=== PATIENT | female | born 1985 | race African-American/Black ===

== ENCOUNTER 2019-08-04 10:52 | Inpatient (IN) | payer OTHER ==
[2019-08-04] MEDS ORDERED: OBEPIDURAL* 250 ML EPIDURAL ONE (12:07)
[2019-08-04 12:10] LABS: ABS Lymphocytes 0.9 10^3/ul (1.0-4.8); ABS Monocytes 0.4 10^3/ul (0-0.8); ABS Neutrophils 4.7 10^3/ul (1.5-7.7); Eosinophil % 0.2 %; Hematocrit 33 % (35-47); Hemoglobin 10.7 g/dL (12.0-16.0); Lymphocyte % 14.6 %; Mean Corpuscular HGB Conc 33 g/dL (31-36); Mean Corpuscular Hemoglobin 27 pg (27-31); Mean Corpuscular Volume 83 fL (80-97); Mean Platelet Volume 8.8 fL (7.4-10.4); Platelet Count 273 10^3/uL (150-450); Red Blood Count 3.93 10^6 /uL (3.70-4.87); Red Cell Distribution Width 15 % (10-15)
[2019-08-04] MEDS ORDERED: Lactated Ringers 1000 ML Bag* 1,000 ML IV ONE ×2 (12:18→13:08)
[2019-08-04] MEDS ORDERED: Buffered Lidocaine 1% SYRIN* 1 ML/SYRINGE INTRADERM ONE (12:18)
--- NOTE | 2019-08-04 12:27 | HP ---
General Information - Reason for Visit Pt presents to L&D reporting intense ctx every 2-3 min for the past couple hours. Pt has been getting part of her care in [place] as she was considered too high risk for a TOLAC with her BMI >60. Pt went into active labor today and could not make it there. Pt has been extensively counseled regarding the risks of TOLAC several times in her . - General Information Maternal Age: 30 Grav: 2 Para: 1 SAB: 0 IEA: 0 Estimated Due Date: 08/07/19 Determined By: LMP Gestational Age in Weeks/Days: 39+4 Maternal Blood Type and Rh: O Positive - Results this Serology/RPR Result: Non-Reactive Rubella Result: Immune HBsAg Result: Negative HIV Result: Negative GBS Culture Result: Negative Past Medical History Delivery History: Hx C/Section Pertinent Past Medical History: See Records Past Medical History Comment: Morbid obesity, asthma, depression, anxiety, back pain Pertinent Past Surgical History: See Records Past Surgical History Comment: Mensicectomy, - Antepartal Records Antepartal Records: Reviewed, Complicated by: - see above Review of Systems Constitutional: Uncomfortable CV Complaint: No Respiratory: Shortness of Breath: No Gastrointestinal: No Nausea/Vomiting, Normal Bowel Movement Genitourinary: No Leaking Fluid Musculoskeletal: Contractions Neurological: No Headache Movement: Normal Exam Allergies/Adverse Reactions: Allergies MS Fluticasone [From Advair] Allergy (Verified 04/28/18 11:22) Anaphylatic Shock MS Salmeterol [From Advair] Allergy (Verified 04/28/18 11:22) Anaphylatic Shock succinylcholine Allergy (Verified 04/28/18 11:22) MYALGIA T 97.0, P72, 129/72 Lab Values - Entire Visit: Laboratory Tests 08/04/19 08/04/19 12:00 12:00 WBC 6.0 RBC 3.93 Hgb 10.7 L Hct 33 L MCV 83 MCH 27 MCHC 33 RDW 15 Plt Count 273 MPV 8.8 Neut % (Auto) 78.4 Lymph % (Auto) 14.6 [place] % (Auto) 6.5 Eos % (Auto) 0.2 Baso % (Auto) 0.3 Absolute Neuts (auto) 4.7 Absolute Lymphs (auto) 0.9 L Absolute Monos (auto) 0.4 Absolute Eos (auto) 0.0 Absolute Basos (auto) 0.0 Absolute Nucleated RBC 0.0 Nucleated RBC % 0.0 Blood Type O Positive - Measurements Height: 5 ft Weight: 309 lb Body Mass Index (BMI): 60.3 Pre- Weight: 327 lb - Exam Breast: Breast Exam Deferred Heart: Normal Rhythm/Heart Sounds HEENT: No Significant Findings Lungs: Clear Bilaterally Rectal: Rectal Exam Deferred - Ultrasound/Biophysical Profile Ultrasound Status: Not Done Targeted Exam Findings Estimated Weight: 7lb 12oz Cervical Exam: 8cm Effacement: Complete Station: -1 Presenting Part: Vertex Membrane Status: Bulging EFM Findings - External Monitor Findings Baseline Heart Rate: 140 External Monitor Findings: Accelerations Present, No Pattern of Variable or Late Decelerations, Variability Moderate, Baseline Stable Contractions: Regular, Strong Contraction Frequency: Q2-3 Assessment/Plan - Assessment Pt with very high BMI, h/o C/S strongly desires TOLAC. Aware we did not recommend delivery here due to the high risk nature of her situation, but she still wants to continue. Epidural requested luis. IV able to be placed already. Labs drawn. - Obstetrical Risk Factors Obstetrical Risk Factors: Obesity, Previous C/Section in Labor - Plan Plan: Admit - Anticipate Vaginal Delivery - Date/Time of Admission Date of Admission: 08/04/19 Time of Admission: 12:00
[2019-08-04] MEDS ORDERED: Lactated Ringers 1000 ML Bag* 1,000 ML IV SCH ×3 (13:00→20:00)
[2019-08-04] MEDS ORDERED: Famotidine TAB* 20 MG PO PRN (13:08)
[2019-08-04] MEDS ORDERED: Phenylephrine 40 MCG/ML SYRINGE IV PUSH PRN (13:08)
[2019-08-04] MEDS ORDERED: Sodium Citrate/Citric Acid* 15 ML UDC PO PRN (13:08)
[2019-08-04] MEDS ORDERED: EPHEDrine (Pressors)* 50 MG/ML VIAL IV PUSH PRN (13:08)
[2019-08-04] MEDS ORDERED: Lactated Ringers 1000 ML Bag* 500 ML IV PRN ×2 (13:08)
[2019-08-04] MEDS ORDERED: OBEPIDURAL* 250 ML EPIDURAL SCH (14:00)
[2019-08-04 14:39] LABS: Urine Benzodiazepine Screen None Detected (None Detect); Urine Opiates Screen None Detected (None Detect)
--- NOTE | 2019-08-04 18:47 | PN ---
Progress Note - Progress Note Date of Service: 08/04/19 Note: See H&P. Pt is attempting , presented in very active labor. Since epidural and AROM, it has been over 4 hrs with no cervical change or descent despite frequent ctx and position changes. Epidural catheter just became disconnected, so it will need to be replaced. I strongly urge proceeding with a section at this time considering her lack of labor progress in addition to the additional risks of TOLAC including uterine rupture, organ injury and hemorrhage during surgery, etc, especially with her extremely high BMI. Pt agrees she will need the C/S, but needs a little time to accept it mentally. At this time, the FHT is generally reassuring with moderate variability and occasional accels and without any frequent decelerations. Dr. Moy prefers to have an epidural for the C/S anyway, so he will place now, and then hopefully we can proceed with preparations for the C/S.
[2019-08-04] MEDS ORDERED: Oxytocin in LR* 20 UNITS/1,000 ML BAG IVPB ONE (19:14)
[2019-08-04] MEDS ORDERED: Witch Hazel PAD* JAR TOPICAL PRN (19:40)
--- NOTE | 2019-08-04 19:52 | PROCNOTE ---
[facility] OB: Delivery Note - Nursery Level of Nursery: Regular/Bedside - Perineum Perineal Injury: Perineal Laceration, 2nd Degree Perineal Repair: By Delivering Practioner - Events Delivery Events of Note: Pitocin Only After Delivery - Additional Delivery Notes Additional Delivery Notes: Pt presented in active labor with cervix about 8cm, bulging membranes. She received an epidural which worked well, and AROM performed. After four hours without cervical change or descent, we discussed proceeding to a section. Since epidural catheter had become disconnected, a new one was placed by anesthesia. While sitting up for about 20 min, there was apparently descent since there was sudden bradycardia and head noted to be at the perineum. Pt pushed with the next contraction, and the head delivered in a controlled fashion. Compound hand delivered. Body then delivered quickly. Nuchal cord reduced. with good tone and cried quickly. Cord doubly clamped and cut by partner. IV pitocin started. Intact placenta delivered spontaneously. 1% lidocaine injected, and a 2nd degree perineal lac repaired with 3-0 Vicryl Rapide.
[2019-08-04] MEDS ORDERED: Oxytocin in LR* 20 UNITS/1,000 ML BAG IVPB SCH (20:00)
[2019-08-04] MEDS: Ibuprofen TAB* 600 MG PO SCH (20:08)
[2019-08-04] MEDS: Acetaminophen TAB* 325 MG PO PRN (22:48)
[2019-08-04] MEDS: Dibucaine 1% 28.35 GM TUBE PR PRN (22:49)
[2019-08-05] MEDS: Ibuprofen TAB* 600 MG PO SCH ×4 (02:29→22:28)
[2019-08-05] MEDS: Acetaminophen TAB* 325 MG PO PRN ×2 (06:14→19:26)
[2019-08-05 06:45] LABS: ABS Basophils 0.1 10^3/ul (0-0.2); ABS Eosinophils 0.3 10^3/ul (0-0.6); ABS Lymphocytes 2.9 10^3/ul (1.0-4.8); ABS Monocytes 0.7 10^3/ul (0-0.8); ABS Neutrophils 7.1 10^3/ul (1.5-7.7); Eosinophil % 2.8 %; Hematocrit 23 % (35-47); Hemoglobin 7.4 g/dL (12.0-16.0); Lymphocyte % 26.1 %; Mean Corpuscular HGB Conc 33 g/dL (31-36); Mean Corpuscular Hemoglobin 27 pg (27-31); Mean Corpuscular Volume 82 fL (80-97); Mean Platelet Volume 8.4 fL (7.4-10.4); Platelet Count 286 10^3/uL (150-450); Red Blood Count 2.76 10^6 /uL (3.70-4.87); Red Cell Distribution Width 15 % (10-15); White Blood Count 11.1 10^3/uL (3.5-10.8)
[2019-08-05] MEDS: Ferrous Gluconate TAB* 324 MG TAB PO SCH (08:51)
[2019-08-05] MEDS: Docusate CAP* 100 MG PO SCH ×3 (08:52→19:26)
[2019-08-05] MEDS ORDERED: Enoxaparin(*) 40 MG/0.4 ML SYR SUBCUT SCH (10:00)
[2019-08-05] MEDS: Simethicone TAB* 80 MG TAB.CHEW PO SCH (14:31)
[2019-08-05] MEDS: Dibucaine 1% 28.35 GM TUBE PR PRN (15:15)
[2019-08-06] MEDS: Acetaminophen TAB* 325 MG PO PRN ×3 (00:44→10:59)
[2019-08-06] MEDS: Ibuprofen TAB* 600 MG PO SCH ×2 (04:48→14:26)
[2019-08-06 07:30] VITALS: BP 123/73
[2019-08-06] MEDS: Docusate CAP* 100 MG PO SCH ×2 (09:26→14:26)
[2019-08-06] MEDS: Ferrous Gluconate TAB* 324 MG TAB PO SCH (09:26)
== END 2019-08-06 15:00 | disposition home or self-care (01) | DRG 807 ==
LOC: MCHOBOUT 10:52 → MCHOB 12:10
PROVIDERS: ADMIT Obstetrics & Gynecology; ATTEND Obstetrics & Gynecology
PROC: 10E0XZZ Delivery of Products of Conception, External Approach (ICD-10-PCS; principal; 2019-08-04)
PROC: 0KQM0ZZ Repair Perineum Muscle, Open Approach (ICD-10-PCS; 2019-08-04)
PROC: 10907ZC Drainage of Amniotic Fluid, Therapeutic from Products of Conception, Via Natural or Artificial Opening (ICD-10-PCS; 2019-08-04)
PROC: 4A1HXCZ Monitoring of Products of Conception, Cardiac Rate, External Approach (ICD-10-PCS; 2019-08-04)
PROC: 4A1H7CZ Monitoring of Products of Conception, Cardiac Rate, Via Natural or Artificial Opening (ICD-10-PCS; 2019-08-04)
PROC: 10H073Z Insertion of Monitoring Electrode into Products of Conception, Via Natural or Artificial Opening (ICD-10-PCS; 2019-08-04)
DX: O34.211 Maternal care for low transverse scar from previous cesarean delivery (principal); O70.1 Second degree perineal laceration during delivery; O76 Abnormality in fetal heart rate and rhythm complicating labor and delivery; O69.81X0 Labor and delivery complicated by cord around neck, without compression, not applicable or unspecified; O32.6XX0 Maternal care for compound presentation, not applicable or unspecified; O99.214 Obesity complicating childbirth; O90.81 Anemia of the puerperium; E66.01 Morbid (severe) obesity due to excess calories; Z3A.39 39 weeks gestation of pregnancy; Z37.0 Single live birth; Z88.8 Allergy status to other drugs, medicaments and biological substances; Z28.21 Immunization not carried out because of patient refusal
CPT/HCPCS: 36415; 80307; 85025; 86850; 86900; 86901; A9270-GY; J1650